=== PATIENT | male | born 1990 | race Caucasian/White ===

== ENCOUNTER 2023-02-03 18:37 | Emergency (ER) | payer MEDICAID ==
[~2023-02-03] VITALS: Ht 177.8 cm; Wt 95.5 kg
[2023-02-03 18:42] VITALS: BP 160/96
== END 2023-02-03 20:45 | disposition left against medical advice (07) ==
LOC: ER 18:37
DX: Z53.21 Procedure and treatment not carried out due to patient leaving prior to being seen by health care provider (principal)
CPT/HCPCS: 99281